=== PATIENT | female | born 1980 | race Caucasian/White ===

== ENCOUNTER 2018-05-26 21:12 | Emergency (ER) | payer SELFPAY ==
[~2018-05-26] VITALS: Ht 165.1 cm; Wt 79.4 kg
[2018-05-26 21:25] VITALS: BP 131/86
[2018-05-26] MEDS ORDERED: LIDOCAINE 1%/EPI 1:100,000 20 ML VIAL. ONE (21:35)
[2018-05-26] MEDS ORDERED: LIDOCAINE 1%/EPI 1:100,000 20 ML VIAL. IJ ONE (21:45)
--- NOTE | 2018-05-26 22:08 | PHYS DOC ---
Past History Past Medical History: No Pertinent History Past Surgical History: No Surgical History Alcohol Use: None Drug Use: None Adult General Chief Complaint Chief Complaint: LACERATION/AVULSION HPI HPI 37-year-old female presents with laceration of the palm of her left hand. The patient was using a new knife cutting potatoes, when it slipped and she lacerated her hand. The patient states the knife was clean except for the potatoes. She immediately rinsed it out thoroughly with water and put direct pressure to stop the bleeding. The patient tetanus was within the last 5 years. She denies any other injuries. Review of Systems Review of Systems Constitutional: Denies fever or chills [] Eyes: Denies change in visual acuity, redness, or eye pain [] HENT: Denies nasal congestion or sore throat [] Respiratory: Denies cough or shortness of breath [] Cardiovascular: No additional information not addressed in HPI [] GI: Denies abdominal pain, nausea, vomiting, bloody stools or diarrhea [] : Denies dysuria or hematuria [] Musculoskeletal: Denies back pain or joint pain [] Integument: Laceration[] Neurologic: Denies headache, focal weakness or sensory changes [] Endocrine: Denies polyuria or polydipsia [] All other systems were reviewed and found to be within normal limits, except as documented in this note. Current Medications Current Medications Current Medications Medications (Trade) Dose Ordered Sig/Javier Start Time Stop Time Status Last Admin Dose Admin Lidocaine/ Epinephrine (Xylocaine 1%-Epi 1:100,000) 20 ml STK-MED ONCE 05/26/18 21:35 05/26/18 21:36 DC Allergies Allergies Allergies Coded Allergies Type Severity Reaction Last Updated Verified tetracycline Allergy Severe 05/26/18 Yes Physical Exam Physical Exam Constitutional: Well developed, well nourished, no acute distress, non-toxic appearance. [] HENT: Normocephalic, atraumatic, bilateral external ears normal, oropharynx moist, no oral exudates, nose normal. [] Eyes: PERRLA, EOMI, conjunctiva normal, no discharge. [] Neck: Normal range of motion, no tenderness, supple, no stridor. [] Cardiovascular:Heart rate regular rhythm, no murmur [] Lungs & Thorax: Bilateral breath sounds clear to auscultation [] Abdomen: Bowel sounds normal, soft, no tenderness, no masses, no pulsatile masses. [] Skin: 2.5 cm laceration of the volar left hand[] Back: No tenderness, no CVA tenderness. [] Extremities: No tenderness, no cyanosis, no clubbing, ROM intact, no edema. [] Neurologic: Alert and oriented X 3, normal motor function, normal sensory function, no focal deficits noted. [] Psychologic: Affect normal, judgement normal, mood normal. [] Current Patient Data Vital Signs Vital Signs Date Time Temp Pulse Resp B/P (MAP) Pulse Ox O2 Delivery O2 Flow Rate FiO2 05/26/18 21:25 98.2 114 18 94 Room Air EKG EKG [] Radiology/Procedures Radiology/Procedures [] Course & Med Decision Making Course & Med Decision Making Pertinent Labs and Imaging studies reviewed. (See chart for details) The patient had a laceration of the left hand. See note below for repair details. There were no complications. No antibiotic is currently indicated. Her tetanus is up-to-date. The patient is stable for discharge at this time. [] Dragon Disclaimer Dragon Disclaimer This electronic medical record was generated, in whole or in part, using a voice recognition dictation system. Laceration Repair Lac Repair Indication: [2.5 cm linear laceration of the left hand] Procedure: I obtained verbal consent from the patient to repair her laceration of her left hand with sutures. The wound was thoroughly irrigated with a Hibiclens saline solution. I anesthetized the wound with 1% lidocaine with epinephrine. A total of 2 mL was used. After good anesthesia was achieved, I repaired the laceration with 4 4-0 Ethilon interrupted sutures. Bleeding was well-controlled. The skin was well approximated. Triple antibiotic ointment was applied to the wound and it was covered with a clean dressing. Total repaired wound length: [2.5 cm. Other Items: [None] The patient tolerated the procedure well Complications: [None]. NIMA VERA DO May 26, 2018 22:07
== END 2018-05-26 22:11 | disposition home or self-care (01) ==
LOC: ER 21:12
DX: S61.412A Laceration without foreign body of left hand, initial encounter (principal); Z88.1 Allergy status to other antibiotic agents; W26.0XXA Contact with knife, initial encounter; Y93.89 Activity, other specified; Y92.89 Other specified places as the place of occurrence of the external cause; Y99.8 Other external cause status
CPT/HCPCS: 12001; 99283